=== PATIENT | male | born 1965 | race Two or more races ===

== ENCOUNTER 2019-07-01 17:38 | Emergency (ER) | payer OTHER ==
[~2019-07-01] VITALS: Ht 167.6 cm; Wt 217.7 kg
== END 2019-07-01 21:20 | disposition home or self-care (01) ==
LOC: ER 17:38
DX: R06.02 Shortness of breath (principal)

== ENCOUNTER 2022-01-28 10:46 | Emergency (ER) | payer OTHER ==
[~2022-01-28] VITALS: Ht 167.6 cm; Wt 217.7 kg
== END 2022-01-28 15:05 ==
LOC: ER 10:46
DX: L03.116 Cellulitis of left lower limb (principal)